=== PATIENT | female | born 1980 | race Caucasian/White ===

== ENCOUNTER 2024-12-01 10:41 | Outpatient (CLI) | payer BC, SELFPAY | END 2024-12-01 10:42 | disposition home or self-care (01) | LOC: NFLDREF 12-03 15:49 | PROVIDERS: Visit Provider Nurse Practitioner Family | DX: N30.00 Acute cystitis without hematuria (principal); B96.20 Unspecified Escherichia coli [E. coli] as the cause of diseases classified elsewhere | CPT/HCPCS: 87086 ==